=== PATIENT | female | born 1990 | race African-American/Black ===

== ENCOUNTER 2022-04-05 13:58 | Emergency (ER) | payer MEDICAID ==
[~2022-04-05] VITALS: Ht 162.6 cm; Wt 68.0 kg
[2022-04-05] MEDS ORDERED: OLANZAPINE 10 MG/VIAL IM STA (15:11)
[2022-04-05] MEDS ORDERED: DIPHENHYDRAMINE 50MG/ML VIAL IM STA (15:11)
[2022-04-05] MEDS ORDERED: MIDAZOLAM HCL 2 MG/2 ML VIAL IM ONE (15:15)
[2022-04-05 16:03] LABS: BASOPHILS % 0.7 % (0.0-2.0); EOSINOPHILS % 2.1 % (0.0-5.0); HEMATOCRIT. 35.9 % (36.0-48.0); HEMOGLOBIN. 11.5 g/dL (12.0-16.0); MEAN CORPUSCULAR HEMOGLOBIN 22.7 pg (28.0-32.0); MEAN CORPUSCULAR VOLUME 71.4 fL (81.0-99.0); MEAN PLATELET VOLUME 8.9 fl (7.4-10.4); MONOCYTES % 7.1 % (2.0-8.0); NEUTROPHILS % 49.1 % (40.0-76.0); PLATELET 235 x1000/uL (130-400); RED BLOOD CELL COUNT 5.03 mill/uL (4.2-5.4); RED CELL DISTRIBUTION WIDTH 15.2 % (11.6-14.6)
[2022-04-05 16:14] LABS: CHLORIDE 108 mEq/L (98-107)
[2022-04-05 16:17] LABS: HCG SCREEN NEGATIVE
[2022-04-05 16:29] LABS: ETHANOL BLOOD < 10 mg/dL
[2022-04-05] MEDS ORDERED: MIDAZOLAM HCL 2 MG/2 ML VIAL IM NR (19:00)
[2022-04-05] MEDS ORDERED: DIPHENHYDRAMINE 50MG/ML VIAL IM NR (19:00)
[2022-04-05] MEDS ORDERED: OLANZAPINE 10 MG/VIAL IM NR (19:00)
[2022-04-05 20:18] LABS: CLARITY URINE CLOUDY (CLEAR); COLOR URINE YELLOW (YELLOW); KETONES URINE TRACE (NEGATIVE); LEUKOCYTE ESTERASE URINE NEGATIVE (NEGATIVE); NITRITE URINE NEGATIVE (NEGATIVE); OCCULT BLOOD URINE NEGATIVE (NEGATIVE); PROTEIN URINE TRACE (NEGATIVE); SPECIFIC GRAVITY URINE 1.021 (1.005-1.030)
[2022-04-05 20:29] LABS: *AMPHETAMINES SCREEN URINE NEGATIVE (NEGATIVE); *BARBITURATES SCREEN URINE NEGATIVE (NEGATIVE); *BENZODIAZEPINES SCREEN URINE NEGATIVE (NEGATIVE); *COCAINE SCREEN URINE NEGATIVE (NEGATIVE); METHADONE URINE SCREEN NEGATIVE (NEGATIVE); OPIATES URINE SCREEN NEGATIVE (NEGATIVE); PHENCYCLIDINE URINE SCREEN NEGATIVE (NEGATIVE)
[2022-04-05 20:39] LABS: CANNABINOID URINE SCREEN PRESUMTIVE POSITIVE (NEGATIVE)
[2022-04-06] MEDS: OLANZAPINE 5MG TABLET PO SCH (12:37)
[2022-04-07] MEDS: OLANZAPINE 5MG TABLET PO SCH (09:36)
[2022-04-07 22:49] VITALS: BP 102/45
== END 2022-04-07 23:00 ==
LOC: ER 14:12
DX: F29 Unspecified psychosis not due to a substance or known physiological condition (principal); F22 Delusional disorders; F12.929 Cannabis use, unspecified with intoxication, unspecified; F31.9 Bipolar disorder, unspecified; F20.9 Schizophrenia, unspecified; Z20.822 Contact with and (suspected) exposure to COVID-19
CPT/HCPCS: 36415; 80053; 80305; 80307; 80320; 80329; 81003; 84443; 84703; 85025; 96372; 99285; C9803; J1200; J2250; J3490; U0003; U0005; G0480